=== PATIENT | female | born 1985 | race Caucasian/White ===

== ENCOUNTER 2022-06-08 21:50 | Emergency (ER) | payer OTHER ==
[2022-06-08 23:20] LABS: HEMOGLOBIN 12.5 gm/dl (12.3-15.3); RED BLOOD COUNT 4.25 M/UL (4.00-5.10); WHITE BLOOD COUNT 7.6 K/UL (4.5-11.0)
[2022-06-08 23:44] LABS: BUN/CREATININE RATIO 23 (0-10)
[2022-06-09] MEDS ORDERED: ZOFRAN ODT 4 MG4 MG SL (02:46)
[2022-06-09] MEDS ORDERED: BACTRIM DS TAB1 EACH PO (02:46)
== END 2022-06-09 02:55 | disposition home or self-care (01) ==
LOC: ER1 21:50
PROVIDERS: Emergency Medicine
DX: L02.413 Cutaneous abscess of right upper limb (principal); F17.200 Nicotine dependence, unspecified, uncomplicated
CPT/HCPCS: 10060; 80053; 81001; 84703; 85025; 99283

== ENCOUNTER → 2022-06-18 | Outpatient (CLI) | payer OTHER ==
[~2022-06-18] MED LIST: BACTRIM DS TAB1 EACH PO; ZOFRAN ODT 4 MG4 MG SL
== END ==
LOC: LAB 12:03
DX: R79.0 Abnormal level of blood mineral (principal)
CPT/HCPCS: 36415; 84132

== ENCOUNTER → 2022-06-20 | Outpatient (CLI) | payer OTHER | LOC: LAB 11:58 | DX: E87.5 Hyperkalemia (principal) | CPT/HCPCS: 36415; 84132 ==